=== PATIENT | male | born 1960 | race Caucasian/White ===

== ENCOUNTER 2024-09-28 16:45 | Outpatient (CLI) | payer OTHER, SELFPAY ==
--- NOTE | ~2024-09-28 | XR_ITS ---
CHEST RADIOGRAPH, PA AND LATERAL CLINICAL HISTORY: R05.3 - Chronic cough . COMPARISON: None TECHNIQUE: PA and lateral views of the chest. FINDINGS The cardiomediastinal silhouette is unremarkable. The lungs are clear. Visualized osseous structures and soft tissues are unremarkable. IMPRESSION: No focal infiltrate or effusion. Reviewed, dictated and finalized at location A. SWING DEVELOPER
== END 2024-09-28 16:46 | disposition home or self-care (01) ==
LOC: MICIMG 16:46
PROVIDERS: PCP Family Medicine; Visit Provider Family Medicine
DX: R05.3 Chronic cough (principal)
CPT/HCPCS: 71046

== ENCOUNTER 2025-01-21 00:54 | Day surgery (SDC) | payer OTHER, SELFPAY ==
[2025-01-14 09:21] VITALS: BMI 21.4
--- OUTSIDE RECORDS SUMMARY | 2025-01-21 00:56 | XMS_ITS | Referral Summary ---
Author Organization [facility] Address [address] [place] [id number] Care Team Providers Care Playground Aide Name Role Phone Zachery Figueroa MD Primary Care Provider Encounters Date Type Department Care Team Description 11/16/2024 2:00 PM CDT Office Visit [facility] Dermatology [address] [place] [address] Wicho Leong MD Actinic keratoses (Primary Dx); Seborrheic keratoses; Multiple melanocytic nevi; Lentigines from Last 3 Months Allergies No known active allergies Medications azelastine (ASTELIN) 137 mcg (0.1 %) nasal spray 9 Active montelukast (SINGULAIR) 10 mg tablet 9 Active omeprazole (PriLOSEC) 40 mg capsule 9 Active sildenafiL (VIAGRA) 100 mg tablet 1 Active triamcinolone (KENALOG) 0.1 % ointmentIndicat ions:Nummular eczema Apply topically 2 (two) times a day To red, itchy area on right ofntenot 80 g 1 2 Active fluorouraciL (EFUDEX) 5 % cream bid to areas of pre-skin cancers x 14days 40 g 1 3 Active Active Problems Problem Noted Date Diagnosed Date Multiple benign melanocytic nevi 01/12/2016 Actinic keratosis 10/12/2012 Social History Tobacco Use Types Packs/Day Years Used Date Smoking Tobacco: Never Smokeless Tobacco: Never Tobacco Cessation:Counseling Given: Not Answered Sex and Gender Information Value Date Recorded Sex Assigned at Not on file 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 CHOICE PLUS [facility] HMO/PPO [place] [address] Care Teams Playground Aide Relationship Specialty Start Date End Date Zachery Figueroa MD [address] [place] [address] PCP - General 10/21/17
--- OUTSIDE RECORDS SUMMARY | 2025-01-21 00:56 | XMS_ITS | Clinical Summary ---
Author Organization [facility] Address [address] [place] [phone] Care Team Providers Care Embryology Teacher Name Role Phone Zachery Figueroa MD Primary Care Provider Allergies No known active allergies Medications azelastine (ASTELIN) 137 mcg (0.1 %) nasal spray 9 Active montelukast (SINGULAIR) 10 mg tablet 9 Active omeprazole (PriLOSEC) 40 mg capsule 9 Active sildenafiL (VIAGRA) 100 mg tablet 1 Active triamcinolone (KENALOG) 0.1 % ointmentIndicat ions:Nummular eczema Apply topically 2 (two) times a day To red, itchy area on right fontenot 80 g 1 2 Active fluorouraciL (EFUDEX) 5 % cream bid to areas of pre-skin cancers x 14days 40 g 1 3 Active Active Problems Problem Noted Date Diagnosed Date Multiple benign melanocytic nevi 01/12/2016 Actinic keratosis 10/12/2012 Encounters Date Type Department Care Team Description 11/16/2024 2:00 PM CDT Office Visit 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 Gender Identity Not on file Sexual Orientation Not on file Obstetrics History Plan of Treatment Health Maintenance Due Date Last Done Comments Colon Cancer Screening-Colonoscopy 1962 Depression Screening 1962 Hepatitis C Screening 1962 Prostate Cancer Screening-PSA 1962 Hepatitis B Screening 1980 Regular Well Visit/Exam 18-64 1980 Zoster Vaccine (1 of 2) 2012 DTaP/Tdap/Td Vaccine (2 - Td or Tdap) 12/28/2022 12/28/2012 Influenza Vaccine (Season Ended) 2025 Pneumococcal vaccine <65 Aged Out No longer eligible based on patient's age to complete this topic Insurance [facility] CHOICE PLUS [facility] HMO/PPO Address: [place] [address] Care Teams Embryology Teacher Relationship Specialty Start Date End Date Zachery Figueroa MD [address] [place] [address] PCP - General 10/21/17
[2025-01-21 06:57] VITALS: BP 112/74; PULSE 79; RESP 16; TEMP 36.5; O2SAT 99
--- NOTE | 2025-01-21 07:04 | WPDANESEPPF ---
Anes - Initial Pre Proc Eval Procedure: Operation Date: 01/21/25 08:00 Proposed Procedures p Screening Colonoscopy - Ho Farfan MD Date/Time: 01/21/25 07:04 Surgeon: Ho Farfan MD Pre Op Diagnosis: Screening Patient Data Age: 64 Gender: M Height: 1.73 m Weight: 62.9 kg Last Vital Signs Temp 36.5 C 01/21/25 06:57 Pulse 79 01/21/25 06:57 Resp 16 01/21/25 06:57 BP 112/74 01/21/25 06:57 Pulse Ox 99 01/21/25 06:57 O2 Del Method Room Air 01/21/25 06:57 Allergies Allergy/AdvReac Type Severity Reaction Status Date / Time No Known Allergies Allergy Unknown Verified 01/21/25 06:55 Home Medications ?Medication ?Instructions ?Recorded ?Confirmed ?Type azelastine 137 mcg (0.1 %) nasal See Rx Instructions .Route 07/09/24 01/14/25 Rx spray .COMPLEX #90 mL montelukast 10 mg tablet See Rx Instructions .Route 07/09/24 01/21/25 Rx .COMPLEX #90 tabs sildenafil 100 mg tablet 100 mg PO DAILY PRN sexual 10/04/24 01/14/25 Rx activity #9 tabs omeprazole 40 mg capsule,delayed 40 mg PO DAILY #90 caps 01/13/25 01/21/25 Rx release Patient hx anesthesia problems: none Family hx anesthesia problems: none Results Review: All pre-operative results and documents have been reviewed as part of the pre-operative evaluation. [facility] Social History Social History Smoking status: Never smoker Alcohol intake: current Drinks per week: 21 Substance use: never Substance use type: does not use Living arrangements: with family Additional living arrangements comments: with sp Occupation/Education: occupation Gender identity (if verbalized by the patient): Male Sexual Orientation (if Verbalized by the Patient): Straight or Heterosexual Spiritual care concerns: No Anes - Eval Final PreProcedure Day of Procedure 01/21/25 07:04 Patient weight: normal Heart: regular rate and rhythm Lungs: clear to auscultation and normal air movement Airway: Mallampati scale class II Neurological: alert and oriented Last oral intake: >/= 8 hours ASA classification: III Emergent: no Anesthetic plan: proceed Anesthesia type and monitoring: general GIVS and standard monitoring Results Review: All pre-operative results and documents have been reviewed as part of the pre-operative evaluation. Informed Consent: The patient's anesthetic plan and its attendant risks and benefits were discussed with the patient/family/POA. Questions were solicited and answers provided to the satisfaction of the patient/family/POA.
[2025-01-21] MEDS: LACTATED RINGERS 1,000 ML 150 ML IV CONT (07:05)
--- NOTE | 2025-01-21 07:50 | PM.HPGS ---
History of Present Illness History of Present Illness Consent: Risks, benefits, and alternatives have been discussed and questions answered. Patient agrees to proceed with procedure. Chief complaint: Screening Narrative: Davon Coppola is a 64 year old male here for screening colonoscopy, last one 12 years ago Review of Systems Review of Systems: All systems reviewed & are unremarkable except as noted in HPI and below PMFSH Past Medical History Medical History (Updated 01/21/25 @ 07:50 by Ho Farfan MD) Colon cancer screening Social History Social History Smoking status: Never smoker Alcohol intake: current Drinks per week: 21 Substance use: never Substance use type: does not use Living arrangements: with family Additional living arrangements comments: with sp Occupation/Education: occupation Gender identity (if verbalized by the patient): Male Sexual Orientation (if Verbalized by the Patient): Straight or Heterosexual Spiritual care concerns: No Meds Home Medications and Allergies Home Medications ?Medication ?Instructions ?Recorded ?Confirmed ?Type azelastine 137 mcg (0.1 %) nasal See Rx Instructions .Route 07/09/24 01/14/25 Rx spray .COMPLEX #90 mL montelukast 10 mg tablet See Rx Instructions .Route 07/09/24 01/21/25 Rx .COMPLEX #90 tabs sildenafil 100 mg tablet 100 mg PO DAILY PRN sexual 10/04/24 01/14/25 Rx activity #9 tabs omeprazole 40 mg capsule,delayed 40 mg PO DAILY #90 caps 01/13/25 01/21/25 Rx release Allergies Allergy/AdvReac Type Severity Reaction Status Date / Time No Known Allergies Allergy Unknown Verified 01/21/25 06:55 Vital Signs Vital Signs - 24 hr 01/21/25 06:57 Temperature 97.7 F Pulse Rate 79 Respiratory Rate 16 Blood Pressure 112/74 Pulse Oximetry 99 Oxygen Delivery Room Air Exam Const: General: comfortable and no acute distress HENMT: Face/Nose/Sinus: Normal nares present Eyes: General: appearance normal, both eyes and all related structures Neck: Neck: no JVD Resp: Auscultation: clear to auscultation bilaterally Cardio: Rate: regular rate Rhythm: regular rhythm GI: Inspection: non-distended GI Palp: Yes Soft to palpation Skin: General skin exam: normal color Neuro: General: gait normal Speech: normal speech Extrem: General: normal to inspection Psych: Mental Status: mental status grossly normal Assessment and Plan Assessment and plan (1) Colon cancer screening: Code(s): Z12.11 - Encounter for screening for malignant neoplasm of colon Status: Acute Assessment and Plan: colonoscopy
[2025-01-21 08:03] VITALS: BP 102/71; PULSE 92; RESP 25; O2SAT 99
[2025-01-21 08:13] VITALS: BP 101/64; PULSE 77; RESP 18; O2SAT 98
[2025-01-21 08:23] VITALS: BP 103/60; PULSE 72; RESP 17; O2SAT 100
== END 2025-01-21 08:27 | disposition home or self-care (01) ==
PROVIDERS: PCP Family Medicine; Referring Provider Physician Assistant; Visit Provider Internal Medicine Gastroenterology
PROC: 0DJD8ZZ Inspection of Lower Intestinal Tract, Via Natural or Artificial Opening Endoscopic (ICD-10-PCS; CPT 45378; principal; 2025-01-21 08:00)
DX: Z12.11 Encounter for screening for malignant neoplasm of colon (principal); K64.8 Other hemorrhoids
CPT/HCPCS: 45378; J2704; J7120